=== PATIENT | male | born 1995 | race Caucasian/White ===

== ENCOUNTER 2019-04-15 02:51 | Emergency (ER) | payer OTHER ==
[~2019-04-15] VITALS: Ht 188 cm; Wt 95.5 kg
[2019-04-15 05:51] VITALS: TEMP 97.3
[2019-04-15 10:15] VITALS: BP 128/68; PULSE 85
== END 2019-04-15 10:56 | disposition home or self-care (01) ==
LOC: COL.ER 02:51
DX: F10.129 Alcohol abuse with intoxication, unspecified (principal); Y90.8 Blood alcohol level of 240 mg/100 ml or more